=== PATIENT | female | born 1945 | race Caucasian/White ===

== ENCOUNTER 2018-05-14 14:15 | Emergency (ER) | payer MEDICARE, OTHER ==
[~2018-05-14] VITALS: Ht 157.5 cm; Wt 76.8 kg
[~2018-05-14 14:15] MED LIST: ADULT LOW DOSE81 MG PO; AMITRIPTYLINE H25 M2 PO; BENTYL PO; BUPROPION XL150 MG PO; BUSPAR PO; BUTALB-CAFF-AC1 EACH PO; CYMBALTA60 MG PO; FENOFIBRATE160 MG PO; FOSAMAX 70 MG T70 M1 PO; INDERAL LA 80 M80 M1 PO; LEVOTHYROXINE0.05 MG PO; NIASPAN ER 101000 M1 PO; NORCO 5-325 TA1 EAC1 PO; OSCIMIN0.125 MG PO; PRILOSEC40 MG PO; REMIFEMIN; RESTORIL15 MG PO; SIMVASTATIN40 MG PO; TRAMADOL 50 MG50 MG; VENLAFAXINE HC150 M1 PO; XANAX 0.25 MG0.25 MG PO
[2018-05-14] MEDS ORDERED: XANAX 0.5 MG0.5 MG PO (14:33)
[2018-05-14] MEDS ORDERED: MOBIC15 MG PO (14:34)
[2018-05-14] MEDS ORDERED: CALCIUM 600 +1 EAC1 PO (14:35)
[2018-05-14] MEDS ORDERED: CHROMIUM PICO200 MCG PO (14:36)
[2018-05-14] MEDS ORDERED: VITAMIN E400 UNIT PO (14:37)
[2018-05-14] MEDS ORDERED: BIOTIN5000 MCG PO (14:38)
[2018-05-14] MEDS ORDERED: CEFDINIR300 MG PO (14:38)
[2018-05-14] MEDS ORDERED: VITAMINC500 PO (14:39)
[2018-05-14] MEDS ORDERED: VITAMIN D2000 UNIT PO (14:40)
[2018-05-14] MEDS ORDERED: MENOPAUSE SUPPO20 MG PO (14:41)
[2018-05-14 15:15] LABS: ABSOLUTE BASOPHILS 0.1 thou/uL (0.0-0.2); ABSOLUTE EOSINOPHILS 0.5 thou/uL (0.0-0.7); ABSOLUTE LYMPHOCYTES 1.5 thou/uL (0.8-5.3); ABSOLUTE MONOCYTES 0.3 thou/uL (0.0-1.2); BASOPHILS 1.2 %; EOSINOPHILS 8.6 %; HEMATOCRIT 41.4 % (37.0-47.0); LYMPHOCYTES 28.5 %; MCH 30.5 pg (26.0-34.0); MCHC 33.8 g/dL (28.0-37.0); MONOCYTES 5.9 %; MPV 7.3 fl. (7.2-11.1); NUCLEATED RBCS 0 /100WBC; PLATELET COUNT* 377 thou/uL (150-400); POLYS 55.8 %; RDW-CV 12.9 % (10.5-14.5); WBC 5.4 thou/uL (4.0-11.0)
[2018-05-14 15:25] LABS: ANION GAP 7 mmol/L (7-16); BUN 20 mg/dL (7-18); CHLORIDE 103 mmol/L (98-107); CO2 29 mmol/L (21-32); GLUCOSE 159 mg/dL (70-99); POTASSIUM 3.8 mmol/L (3.5-5.1); SODIUM 139 mmol/L (136-145)
[2018-05-14 15:37] LABS: ALBUMIN 3.7 g/dL (3.4-5.0); ALKALINE PHOSPHATASE 76 U/L (46-116); SGOT 77 U/L (15-37); SGPT 67 U/L (30-65); TOTAL BILIRUBIN 0.3 mg/dL (<0.1-1.0); TOTAL PROTEIN 7.1 g/dL (6.4-8.2); TROPONIN-I LEVEL <0.06 ng/mL (<0.06)
[2018-05-14 16:18] LABS: URINE BILIRUBIN NEGATIVE (Negative); URINE BLOOD NEGATIVE (Negative); URINE CLARITY CLEAR; URINE COLOR YELLOW; URINE GLUCOSE-RANDOM NEGATIVE (Negative); URINE KETONES NEGATIVE (Negative); URINE LEUKOCYTES-REFLEX 1+ (Negative); URINE NITRITE-REFLEX NEGATIVE (Negative); URINE PROTEIN NEGATIVE (Negative); URINE SPECIFIC GRAVITY 1.015 (1.005-1.030); URINE UROBILINOGEN 0.2 E.U./dl (0.2-1.0)
[2018-05-14 16:28] LABS: SQUAMOUS NONE SEEN /LPF (0-3); URINE RBC None Seen /HPF (0-2); URINE WBC-REFLEX 0-5 Rare /HPF (0-5)
[2018-05-14 16:29] LABS: BACTERIA-REFLEX None Seen /HPF (None Seen); CASTS None Seen /LPF (None Seen); CRYSTALS None Seen /LPF (None Seen)
[2018-05-14] MEDS ORDERED: KEFLEX500 M1 PO (17:10)
[2018-05-14 17:19] VITALS: BP 150/80
--- NOTE | 2018-05-15 10:51 | EKG ---
[place] [address] ELECTROCARDIOGRAM REPORT Name: BABS RICE Room: [facility]#: [id number] Admission: 05/14/18 Attend Phys: Discharge: 05/14/18 Date of : 45 Report #: [id number] THIS REPORT FOR: //name// [facility] ED Test Date: 2018-05-14 Test Time: 14:27:14 Pat Name: BABS RICE Department: Room: Gender: F Conveyor Tender: Jordi KINSEY : 1945 Requested By: Angeles Mayers Order Number: [id number] MD: Nathan Alejandro Measurements Intervals [place] Rate: 95 P: 58 MA: 160 QRS: 70 QRSD: 90 T: 99 QT: 359 QTc: 452 Interpretive Statements Sinus rhythm Nonspecific T abnrm, anterolateral leads Compared to ECG 04/12/2011 10:51:34 no change Electronically Signed On 05-15-2018 10:51:36 ASSISTANT REAL ESTATE MANAGER by Nathan Alejandro [email or web address] <ELECTRONICALLY SIGNED> By: Nathan Alejandro MD, [facility] 05/15/18 1051 1427 142 Nathan Alejandro MD, FACC /EPI
== END 2018-05-14 17:19 | disposition home or self-care (01) ==
LOC: M.ERS 14:15
PROVIDERS: Personal Emergency Response Attendant
DX: R41.0 Disorientation, unspecified (principal); N39.0 Urinary tract infection, site not specified; F41.0 Panic disorder [episodic paroxysmal anxiety]; E03.9 Hypothyroidism, unspecified; E78.5 Hyperlipidemia, unspecified; F32.9 Major depressive disorder, single episode, unspecified; G43.909 Migraine, unspecified, not intractable, without status migrainosus; K21.9 Gastro-esophageal reflux disease without esophagitis; M79.7 Fibromyalgia; Z88.1 Allergy status to other antibiotic agents; Z88.8 Allergy status to other drugs, medicaments and biological substances; Z90.49 Acquired absence of other specified parts of digestive tract; Z90.710 Acquired absence of both cervix and uterus

== ENCOUNTER → 2018-06-26 | Outpatient (CLI) | payer MEDICARE, OTHER ==
[~2018-06-26] MED LIST changes: +BIOTIN5000 MCG PO; +CALCIUM 600 +1 EAC1 PO; +CEFDINIR300 MG PO; +CHROMIUM PICO200 MCG PO; +KEFLEX500 M1 PO; +MENOPAUSE SUPPO20 MG PO; +MOBIC15 MG PO; +VITAMIN D2000 UNIT PO; +VITAMIN E400 UNIT PO; +VITAMINC500 PO; +XANAX 0.5 MG0.5 MG PO
== END ==
LOC: M.RAD 10:33
DX: Z12.31 Encounter for screening mammogram for malignant neoplasm of breast (principal)

== ENCOUNTER 2018-08-26 19:47 | Emergency (ER) | payer MEDICARE, OTHER ==
[~2018-08-26] VITALS: Ht 167.6 cm; Wt 76.7 kg
[2018-08-26] MEDS ORDERED: ARICEPT 5 MG TAB5 MG PO (20:16)
[2018-08-26 21:01] LABS: ABSOLUTE EOSINOPHILS 0.4 thou/uL (0.0-0.7); ABSOLUTE LYMPHOCYTES 2.1 thou/uL (0.8-5.3); ABSOLUTE MONOCYTES 0.4 thou/uL (0.0-1.2); BASOPHILS 0.8 %; EOSINOPHILS 7.3 %; HEMATOCRIT 40.7 % (37.0-47.0); HEMOGLOBIN 13.7 gm/dL (12.0-15.0); LYMPHOCYTES 34.2 %; MCH 29.8 pg (26.0-34.0); MCHC 33.5 g/dL (28.0-37.0); MONOCYTES 7.5 %; MPV 7.4 fl. (7.2-11.1); NUCLEATED RBCS 0 /100WBC; PLATELET COUNT* 383 thou/uL (150-400); POLYS 50.2 %; RBC 4.58 mil/uL (4.20-5.00); RDW-CV 12.9 % (10.5-14.5)
[2018-08-26 21:14] LABS: ALBUMIN 3.6 g/dL (3.4-5.0); CALCIUM 8.7 mg/dL (8.5-10.1); TOTAL BILIRUBIN 0.2 mg/dL (<0.1-1.0); TOTAL PROTEIN 6.5 g/dL (6.4-8.2)
[2018-08-26 21:46] VITALS: BP 158/83
== END 2018-08-26 21:49 | disposition home or self-care (01) ==
LOC: M.ERS 19:47
PROVIDERS: Nurse Practitioner Family
DX: M79.662 Pain in left lower leg (principal); R73.9 Hyperglycemia, unspecified; E03.9 Hypothyroidism, unspecified; E78.5 Hyperlipidemia, unspecified; F32.9 Major depressive disorder, single episode, unspecified; G43.909 Migraine, unspecified, not intractable, without status migrainosus; K21.9 Gastro-esophageal reflux disease without esophagitis; M79.7 Fibromyalgia; Z88.1 Allergy status to other antibiotic agents; Z88.8 Allergy status to other drugs, medicaments and biological substances; Z88.5 Allergy status to narcotic agent; Z90.49 Acquired absence of other specified parts of digestive tract; Z90.710 Acquired absence of both cervix and uterus

== ENCOUNTER → 2018-09-01 | Outpatient (CLI) | payer MEDICARE, OTHER ==
[~2018-09-01] MED LIST changes: +ARICEPT 5 MG TAB5 MG PO
== END ==
LOC: M.MRI 17:02
DX: M25.562 Pain in left knee (principal); K21.9 Gastro-esophageal reflux disease without esophagitis; E78.5 Hyperlipidemia, unspecified; E03.9 Hypothyroidism, unspecified; K58.9 Irritable bowel syndrome, unspecified; G44.209 Tension-type headache, unspecified, not intractable; G43.909 Migraine, unspecified, not intractable, without status migrainosus; M85.88 Other specified disorders of bone density and structure, other site; E55.9 Vitamin D deficiency, unspecified; Z82.49 Family history of ischemic heart disease and other diseases of the circulatory system; Z80.3 Family history of malignant neoplasm of breast; Z83.3 Family history of diabetes mellitus; Z68.29 Body mass index [BMI] 29.0-29.9, adult; Z79.899 Other long term (current) drug therapy; Z88.8 Allergy status to other drugs, medicaments and biological substances; Z88.1 Allergy status to other antibiotic agents

== ENCOUNTER → 2018-10-15 | Outpatient (CLI) | payer MEDICARE, OTHER | LOC: M.RAD 15:13 | DX: M85.89 Other specified disorders of bone density and structure, multiple sites (principal); Z88.1 Allergy status to other antibiotic agents; Z88.8 Allergy status to other drugs, medicaments and biological substances ==

== ENCOUNTER → 2019-03-09 | Outpatient (CLI) | payer MEDICARE, OTHER | LOC: M.ULTRA 09:30 | DX: N63.11 Unspecified lump in the right breast, upper outer quadrant (principal); Z80.3 Family history of malignant neoplasm of breast ==

== ENCOUNTER → 2019-08-10 | Outpatient (CLI) | payer MEDICARE, OTHER ==
[2019-08-10 15:09] LABS: ABSOLUTE BASOPHILS 0.1 thou/uL (0.0-0.2); ABSOLUTE EOSINOPHILS 0.2 thou/uL (0.0-0.7); ABSOLUTE LYMPHOCYTES 2.1 thou/uL (0.8-5.3); ABSOLUTE MONOCYTES 0.5 thou/uL (0.0-1.2); ABSOLUTE NEUTROPHILS 3.3 thou/uL (1.6-8.1); BASOPHILS 1.1 %; EOSINOPHILS 3.3 %; HEMATOCRIT 43.7 % (37.0-47.0); LYMPHOCYTES 34.2 %; MCH 29.9 pg (26.0-34.0); MCHC 34.4 g/dL (28.0-37.0); MCV 87.1 fL (80.0-100.0); MONOCYTES 8.1 %; MPV 7.2 fl. (7.2-11.1); NUCLEATED RBCS 0 /100WBC; PLATELET COUNT* 372 thou/uL (150-400); POLYS 53.3 %; RBC 5.02 mil/uL (4.20-5.00); RDW-CV 12.9 % (10.5-14.5); WBC 6.3 thou/uL (4.0-11.0)
[2019-08-10 15:22] LABS: ALBUMIN 3.7 g/dL (3.4-5.0); CREATININE 0.7 mg/dL (0.6-1.3); POTASSIUM 4.1 mmol/L (3.5-5.1); TOTAL BILIRUBIN 0.3 mg/dL (<0.1-1.0)
[2019-08-10 16:21] LABS: ESR (SEDRATE) 12 mm/hr (0-30)
== END ==
LOC: M.LAB 14:24
PROVIDERS: Internal Medicine Gastroenterology
DX: K58.9 Irritable bowel syndrome, unspecified (principal)

== ENCOUNTER 2020-01-30 12:58 | Emergency (ER) | payer MEDICARE, OTHER ==
[~2020-01-30] VITALS: Ht 162.6 cm; Wt 63.5 kg
[2020-01-30] MEDS ORDERED: MIRALAX119 GM PO (13:18)
[2020-01-30 13:54] LABS: ABSOLUTE BASOPHILS 0.1 thou/uL (0.0-0.2); ABSOLUTE EOSINOPHILS 0.5 thou/uL (0.0-0.7); ABSOLUTE LYMPHOCYTES 1.5 thou/uL (0.8-5.3); ABSOLUTE MONOCYTES 0.5 thou/uL (0.0-1.2); ABSOLUTE NEUTROPHILS 3.1 thou/uL (1.6-8.1); BASOPHILS 1.1 %; EOSINOPHILS 8.7 %; HEMATOCRIT 40.7 % (37.0-47.0); HEMOGLOBIN 14.2 gm/dL (12.0-15.0); LYMPHOCYTES 26.3 %; MCH 30.7 pg (26.0-34.0); MCHC 34.9 g/dL (28.0-37.0); MONOCYTES 8.8 %; MPV 6.5 fl. (7.2-11.1); NUCLEATED RBCS 0 /100WBC; PLATELET COUNT* 363 thou/uL (150-400); POLYS 55.1 %; RBC 4.63 mil/uL (4.20-5.00); RDW-CV 12.6 % (10.5-14.5); WBC 5.6 thou/uL (4.0-11.0)
[2020-01-30 13:59] LABS: CALCIUM 8.6 mg/dL (8.5-10.1); CREATININE 0.8 mg/dL (0.6-1.3); POTASSIUM 4.7 mmol/L (3.5-5.1)
[2020-01-30 14:10] LABS: ALBUMIN 3.6 g/dL (3.4-5.0); TOTAL BILIRUBIN 0.7 mg/dL (<0.1-1.0); TOTAL PROTEIN 7.3 g/dL (6.4-8.2)
[2020-01-30 15:16] LABS: INFLUENZA A ANTIGEN Negative (Negative); INFLUENZA B ANTIGEN Negative (Negative)
[2020-01-30] MEDS ORDERED: AZITHROMYCIN 2250 MG PO (15:24)
[2020-01-30] MEDS ORDERED: PROAIR HFA8.5 GM INH (15:24)
[2020-01-30 15:30] VITALS: BP 129/58
--- NOTE | 2020-01-31 11:50 | EKG ---
[place] [address] ELECTROCARDIOGRAM REPORT Name: BABS RICE Room: [facility] [place]#: [id number] Admission: 01/30/20 Attend Phys: Discharge: 01/30/20 Date of : 45 Date of Service: 01/30/20 1328 Report #: [id number] THIS REPORT FOR: //name// [facility] ED Test Date: 2020-01-30 Test Time: 13:28:10 Pat Name: BABS RICE Department: Room: Gender: Windows Support Engineer: [place] : 1945 Requested By: Андрей Dunbar Order Number: [id number] MD: Nathan Alejandro Measurements Intervals [place] Rate: 99 P: 66 [place]: 138 QRS: 69 QRSD: 83 T: 94 QT: 352 QTc: 452 Interpretive Statements Sinus rhythm Nonspecific T abnrm, anterolateral leads Compared to ECG 05/14/2018 14:27:14 No significant changes Electronically Signed On 01-31-2020 11:50:17 CDT by Nathan Alejandro [email or web address] <ELECTRONICALLY SIGNED> By: Nathan Alejandro MD, [facility] 01/31/20 1150 1328 1328 Nathan Alejandro MD, [facility] /EPI
== END 2020-01-30 15:30 | disposition home or self-care (01) ==
LOC: M.ERS 12:58
PROVIDERS: Nurse Practitioner Psychiatric/Mental Health
DX: J98.11 Atelectasis (principal); Z20.828 Contact with and (suspected) exposure to other viral communicable diseases; R05 Cough; E03.9 Hypothyroidism, unspecified; G43.909 Migraine, unspecified, not intractable, without status migrainosus; K21.9 Gastro-esophageal reflux disease without esophagitis; M79.7 Fibromyalgia; Z88.1 Allergy status to other antibiotic agents; Z88.5 Allergy status to narcotic agent; Z88.8 Allergy status to other drugs, medicaments and biological substances; Z79.899 Other long term (current) drug therapy; Z90.49 Acquired absence of other specified parts of digestive tract; Z90.710 Acquired absence of both cervix and uterus; Z98.890 Other specified postprocedural states

== ENCOUNTER 2020-02-19 14:16 | Emergency (ER) | payer MEDICARE, OTHER ==
[~2020-02-19] VITALS: Ht 162.6 cm; Wt 68.0 kg
[~2020-02-19 14:16] MED LIST changes: +AZITHROMYCIN 2250 MG PO; +MIRALAX119 GM PO; +PROAIR HFA8.5 GM INH
[2020-02-19 14:46] LABS: HEMATOCRIT 43.1 % (37.0-47.0); HEMOGLOBIN 14.9 gm/dL (12.0-15.0); MCH 30.6 pg (26.0-34.0); MCHC 34.7 g/dL (28.0-37.0); MCV 88.3 fL (80.0-100.0); MPV 6.3 fl. (7.2-11.1); NUCLEATED RBCS 0 /100WBC; PLATELET COUNT* 380 thou/uL (150-400); RBC 4.87 mil/uL (4.20-5.00); RDW-CV 12.5 % (10.5-14.5); WBC 7.3 thou/uL (4.0-11.0)
[2020-02-19 15:01] LABS: ALBUMIN 3.7 g/dL (3.4-5.0); CALCIUM 8.5 mg/dL (8.5-10.1); CREATININE 0.8 mg/dL (0.6-1.3); POTASSIUM 4.1 mmol/L (3.5-5.1); TOTAL BILIRUBIN 0.3 mg/dL (<0.1-1.0); TOTAL PROTEIN 7.4 g/dL (6.4-8.2)
[2020-02-19 15:04] LABS: ABSOLUTE BASOPHILS 0.1 thou/uL (0.0-0.2); ABSOLUTE EOSINOPHILS 0.2 thou/uL (0.0-0.7); ABSOLUTE LYMPHOCYTES 3.1 thou/uL (0.8-5.3); ABSOLUTE MONOCYTES 0.7 thou/uL (0.0-1.2); ABSOLUTE NEUTROPHILS 3.3 thou/uL (1.6-8.1); ATYPICAL LYMPHS 20 %
[2020-02-19 15:05] LABS: PLATELET ESTIMATE ADEQUATE
[2020-02-19 15:56] LABS: URINE BILIRUBIN NEGATIVE (Negative); URINE BLOOD TRACE (Negative); URINE COLOR YELLOW; URINE GLUCOSE-RANDOM NEGATIVE (Negative); URINE KETONES NEGATIVE (Negative); URINE LEUKOCYTES-REFLEX 1+ (Negative); URINE NITRITE-REFLEX NEGATIVE (Negative); URINE PROTEIN NEGATIVE (Negative); URINE UROBILINOGEN 0.2 E.U./dl (0.2-1.0)
[2020-02-19 15:58] LABS: URINE CLARITY HAZY
[2020-02-19 16:07] LABS: BACTERIA-REFLEX None Seen /HPF (None Seen); CASTS None Seen /LPF (None Seen); CRYSTALS None Seen /LPF (None Seen); MUCUS 0-3 Light strn/LPF (None Seen); SQUAMOUS 4-10 Moderate /LPF (0-3); URINE RBC None Seen /HPF (0-2); URINE WBC-REFLEX 0-5 Rare /HPF (0-5)
[2020-02-19] MEDS ORDERED: FLAGYL500 M1 PO (17:00)
[2020-02-19 17:30] VITALS: BP 134/75
== END 2020-02-19 17:31 | disposition home or self-care (01) ==
LOC: M.ERS 14:16
PROVIDERS: Physician Assistant
DX: R19.7 Diarrhea, unspecified (principal); R10.30 Lower abdominal pain, unspecified; E03.9 Hypothyroidism, unspecified; G43.909 Migraine, unspecified, not intractable, without status migrainosus; K21.9 Gastro-esophageal reflux disease without esophagitis; M79.7 Fibromyalgia; E78.5 Hyperlipidemia, unspecified; Z79.899 Other long term (current) drug therapy; Z88.1 Allergy status to other antibiotic agents; Z88.8 Allergy status to other drugs, medicaments and biological substances; Z90.49 Acquired absence of other specified parts of digestive tract

== ENCOUNTER → 2020-04-14 | Outpatient (CLI) | payer MEDICARE, OTHER ==
[~2020-04-14] MED LIST changes: +FLAGYL500 M1 PO
== END ==
LOC: M.RAD 12:29
PROVIDERS: ATTEND Family Medicine
DX: Z12.31 Encounter for screening mammogram for malignant neoplasm of breast (principal)

== ENCOUNTER 2020-04-17 16:40 | Emergency (ER) | payer MEDICARE, OTHER ==
[~2020-04-17] VITALS: Ht 162.6 cm; Wt 68.0 kg
[2020-04-17 17:57] LABS: URINE BILIRUBIN NEGATIVE (Negative); URINE BLOOD NEGATIVE (Negative); URINE COLOR YELLOW; URINE GLUCOSE-RANDOM NEGATIVE (Negative); URINE KETONES NEGATIVE (Negative); URINE NITRITE-REFLEX NEGATIVE (Negative); URINE PROTEIN NEGATIVE (Negative); URINE UROBILINOGEN 0.2 E.U./dl (0.2-1.0)
[2020-04-17 17:59] LABS: CALCIUM 8.7 mg/dL (8.5-10.1); CREATININE 0.8 mg/dL (0.6-1.3)
[2020-04-17 18:00] LABS: ABSOLUTE EOSINOPHILS 0.5 thou/uL (0.0-0.7); ABSOLUTE LYMPHOCYTES 2.4 thou/uL (0.8-5.3); ABSOLUTE MONOCYTES 0.6 thou/uL (0.0-1.2); ABSOLUTE NEUTROPHILS 3.3 thou/uL (1.6-8.1); BASOPHILS 0.3 %; HEMATOCRIT 43.6 % (37.0-47.0); HEMOGLOBIN 14.7 gm/dL (12.0-15.0); LYMPHOCYTES 34.9 %; MCH 29.9 pg (26.0-34.0); MCHC 33.8 g/dL (28.0-37.0); MCV 88.4 fL (80.0-100.0); MONOCYTES 9.1 %; NUCLEATED RBCS 0 /100WBC; PLATELET COUNT* 397 thou/uL (150-400); POLYS 48.7 %; RBC 4.93 mil/uL (4.20-5.00); RDW-CV 12.6 % (10.5-14.5); WBC 6.8 thou/uL (4.0-11.0)
[2020-04-17 18:01] LABS: URINE CLARITY HAZY; URINE LEUKOCYTES-REFLEX 2+ (Negative)
[2020-04-17 18:03] LABS: ALBUMIN 3.7 g/dL (3.4-5.0); TOTAL BILIRUBIN 0.3 mg/dL (<0.1-1.0); TOTAL PROTEIN 7.5 g/dL (6.4-8.2)
[2020-04-17 18:05] LABS: CASTS None Seen /LPF (None Seen); CRYSTALS None Seen /LPF (None Seen); MUCUS 0-3 Light strn/LPF (None Seen); SQUAMOUS 4-10 Moderate /LPF (0-3); URINE RBC 0-2 Rare /HPF (0-2); URINE WBC-REFLEX 6-15 Few /HPF (0-5); WBC CLUMPS Few (None Seen)
[2020-04-17 18:06] LABS: TRANSITIONAL EPITHEL CELL 0-3 Few /LPF (None Seen)
[2020-04-17] MEDS ORDERED: KEFLEX500 M1 PO (20:30)
[2020-04-17 20:47] VITALS: BP 132/70
--- NOTE | 2020-04-18 16:36 | EKG ---
[place] [address] ELECTROCARDIOGRAM REPORT Name: BABS RICE Room: [facility]#: [id number] Admission: 04/17/20 Attend Phys: Discharge: 04/17/20 Date of : 45 Date of Service: 04/17/201822 Report #: [id number] THIS REPORT FOR: //name// [facility] ED Test Date: 2020-04-17 Test Time: 18:23:45 Pat Name: BABS RICE Department: Room: Gender: Entry Level Civil Engineer: [facility] : 1945 Requested By: La Robertson Order Number: [id number] MD: Irwin Garcia Measurements Intervals [place] Rate: 92 P: 53 OR: 131 QRS: 74 QRSD: 84 T: 92 QT: 363 QTc: 450 Interpretive Statements Sinus rhythm Compared to ECG 01/30/2020 13:28:10 No significant changes Electronically Signed On 04-18-2020 16:36:37 HOSPICE VOLUNTEER COORDINATOR by Irwin Garcia [email or web address] <ELECTRONICALLY SIGNED> By: Irwin Garcia MD, [facility] 04/18/20 1636 182 22 Irwin Garcia MD, [facility] /EPI
== END 2020-04-17 20:48 | disposition still patient (30) ==
LOC: M.ERS 16:40
PROVIDERS: Nurse Practitioner Family
DX: N39.0 Urinary tract infection, site not specified (principal); R94.5 Abnormal results of liver function studies; Z20.828 Contact with and (suspected) exposure to other viral communicable diseases; E78.5 Hyperlipidemia, unspecified; G43.909 Migraine, unspecified, not intractable, without status migrainosus; M79.7 Fibromyalgia; K21.9 Gastro-esophageal reflux disease without esophagitis; Z88.8 Allergy status to other drugs, medicaments and biological substances; Z88.1 Allergy status to other antibiotic agents; Z87.19 Personal history of other diseases of the digestive system; Z90.49 Acquired absence of other specified parts of digestive tract; Z90.710 Acquired absence of both cervix and uterus

== ENCOUNTER 2020-09-13 17:16 | Inpatient (IN) | payer MEDICARE, OTHER ==
[~2020-09-13] VITALS: Ht 167.6 cm; Wt 71.2 kg
[2020-09-13 17:22] VITALS: BP 129/79
[2020-09-13 17:58] LABS: ABSOLUTE BASOPHILS 0.1 thou/uL (0.0-0.2); ABSOLUTE EOSINOPHILS 0.3 thou/uL (0.0-0.7); ABSOLUTE LYMPHOCYTES 1.8 thou/uL (0.8-5.3); ABSOLUTE MONOCYTES 0.5 thou/uL (0.0-1.2); ABSOLUTE NEUTROPHILS 3.1 thou/uL (1.6-8.1); BASOPHILS 1.1 %; EOSINOPHILS 5.4 %; HEMATOCRIT 41.4 % (37.0-47.0); HEMOGLOBIN 13.8 gm/dL (12.0-15.0); LYMPHOCYTES 31.2 %; MCH 29.8 pg (26.0-34.0); MCHC 33.4 g/dL (28.0-37.0); MCV 89.1 fL (80.0-100.0); MONOCYTES 8.8 %; MPV 7.2 fl. (7.2-11.1); NUCLEATED RBCS 0 /100WBC; PLATELET COUNT* 353 thou/uL (150-400); POLYS 53.5 %; RBC 4.64 mil/uL (4.20-5.00); RDW-CV 13.1 % (10.5-14.5); WBC 5.8 thou/uL (4.0-11.0)
[2020-09-13 18:06] LABS: CALCIUM 8.5 mg/dL (8.5-10.1); CREATININE 0.9 mg/dL (0.6-1.3)
[2020-09-13 18:10] LABS: ALBUMIN 3.4 g/dL (3.4-5.0); TOTAL BILIRUBIN 0.4 mg/dL (<0.1-1.0); TOTAL PROTEIN 6.8 g/dL (6.4-8.2)
[2020-09-13 18:15] LABS: SALICYLATE < 2.8 mg/dL (2.8-20.0)
[2020-09-13 18:16] LABS: ACETAMINOPHEN < 2 ug/mL (10-30); ALCOHOL < 10 mg/dL (<10); POTASSIUM 2.7 mmol/L (3.5-5.1)
[2020-09-13 20:17] VITALS: BP 125/76
[2020-09-14 00:09] VITALS: BP 122/68
[2020-09-14 04:06] VITALS: BP 120/65
[2020-09-14 08:00] VITALS: BP 114/59
[2020-09-14 08:51] LABS: CALCIUM 7.7 mg/dL (8.5-10.1); CREATININE 0.6 mg/dL (0.6-1.3); POTASSIUM 3.5 mmol/L (3.5-5.1)
[2020-09-14 08:55] LABS: MAGNESIUM 1.6 mg/dL (1.8-2.4)
--- NOTE | 2020-09-14 09:30 | EKG ---
[place] [address] ELECTROCARDIOGRAM REPORT Name: BABS RICE Room: [address] ADM IN .R.#: [id number] Admission: 09/13/20 Attend Phys: Madhav Oakes Discharge: Date of : 45 Date of Service: 09/13/20 1734 Report #: [id number] THIS REPORT FOR: //name// [facility] ED Test Date: 2020-09-13 Test Time: 17:34:37 Pat Name: BABS RICE Department: Room: [facility] Gender: F Senior Product Marketing Manager: [place] : 1945 Requested By: Randall Martinez Order Number: [id number] MD: Anand Green Measurements Intervals [place] Rate: 86 P: 65 [place]: 147 QRS: 58 QRSD: 86 T: 106 QT: 403 QTc: 482 Interpretive Statements Sinus rhythm Nonspecific T abnrm, anterolateral leads Borderline prolonged QT interval Compared to ECG 04/17/2020 18:23:45 No significant changes Cannot exclude old inferior myocardial infarction Electronically Signed On 09-14-2020 9:30:14 CDT by Anand Green [email or web address] <ELECTRONICALLY SIGNED> By: Shirley Green MD, [facility] 09/14/20 0930 1734 1734 Shirley Green MD, [facility] /EPI
[2020-09-14 11:32] VITALS: BP 134/71
[2020-09-14] MEDS ORDERED: LOPERAMIDE 2 MG2 M1 PO (15:41)
[2020-09-14 16:01] VITALS: BP 128/67
[2020-09-15] MEDS ORDERED: SINGULAIR 10 MG10 M1 PO (08:32)
[2020-09-15] MEDS ORDERED: LEVOTHYROXINE50 MCG PO (08:32)
[2020-09-15] MEDS ORDERED: BENTYL 10 MG CA10 M1 PO (08:32)
[2020-09-15] MEDS ORDERED: NORVASC5 MG PO (08:33)
== END 2020-09-14 17:00 | DRG 917 ==
LOC: M.ERS 17:16 → M.2W 18:47 → M.TBA-ER 18:47 → M.2W 20:05
PROVIDERS: Family Medicine; Internal Medicine; ADMIT Internal Medicine; ATTEND Internal Medicine
DX: T43.012A Poisoning by tricyclic antidepressants, intentional self-harm, initial encounter (principal); G92 Toxic encephalopathy; R45.851 Suicidal ideations; E87.6 Hypokalemia; E03.9 Hypothyroidism, unspecified; E78.5 Hyperlipidemia, unspecified; F32.9 Major depressive disorder, single episode, unspecified; G43.909 Migraine, unspecified, not intractable, without status migrainosus; F41.1 Generalized anxiety disorder; K21.9 Gastro-esophageal reflux disease without esophagitis; M79.7 Fibromyalgia; Z20.822 Contact with and (suspected) exposure to COVID-19; Z90.49 Acquired absence of other specified parts of digestive tract; Z90.710 Acquired absence of both cervix and uterus; Z79.899 Other long term (current) drug therapy; Z88.1 Allergy status to other antibiotic agents; Z88.5 Allergy status to narcotic agent; Z88.8 Allergy status to other drugs, medicaments and biological substances; Y92.89 Other specified places as the place of occurrence of the external cause

== ENCOUNTER 2020-10-25 09:36 | Emergency (ER) | payer MEDICARE, OTHER ==
[~2020-10-25] VITALS: Ht 167.6 cm; Wt 81.7 kg
--- NOTE | ~2020-10-25 | EMS ---
[facility] [address] [place] [address] EMS Patient Care Report Name: MARGARET TOMLINSON Room: [facility]#: [id number] Admission: 10/25/20 Attend Phys: Discharge: Date of : 45 Report #: [id number] THIS REPORT FOR: //name// Report Transmitted: 10/25/2020 11:47 EMS Care Summary [facility] [place] Incident [id number] @ 10/25/2020 09:00 Incident Location [address] [place] [address] Patient Margaret Tomlinson Female, 75 Years 1945 Patient Address [address] [place] [address] Patient History Anxiety disorder, unspecified,Hyperlipidemia,Dysthymic disorder,Unspecified dementia,Acquired absence of cervix and uterus, Patient Allergies No known allergies, Chief Complaint Suicidal Ideation Disposition Transported No Lights/[place] Dispatch Reason Unknown Problem/Person Down Transported To [facility] Katie Maruo [phone], home care nurse. [facility] [place] [facility] unit 311 dispatched to above location in request by [place] [employer] ([employer]) Pumper 7 on scene. Upon arrival, [employer] personnel make contact and state that they dont' know whats going on but female patient needs to go to the hospital. Crew walks towards door of residence, and patient is being walked out by other [address] [place] [address] EMS Patient Care Report Name: MARGARET TOMLINSON Room: [facility]#: [id number] Admission: 10/25/20 Attend Phys: Discharge: Date of : 45 Report #: [id number] memebrs of [employer] crew. [employer] personnel ask [facility] crew to speak with home care nurse to obtain information. [facility] Highway Design Engineer makes contact with home care nurse (Debbie Mauro LPN Fire Prevention Bureau Captain, contact number [phone]). Nurse states she had made contact with the patient this morning and patient was acting inappropriately, shredding papers in her home, and that patient is having suicidal ideations. Nurse states that the patient expressed thoughts of hurting herself because she no longer wants to live and the patient may have taken some of her meds that she wasn't supposed to. Patient has full access to her medications at home. Nurse was unaware of what hospital the patient should go to for evaluation and states that she thinks that the patient was recently in a hospital for geriatric psychiatric evaluation. Highway Design Engineer returns to other [facility] weatherization crew leader and [employer] personnel who are assisting patient onto stretcher. Patient was placed in a semi fowlers position and secured via rails x 2 straps x 5. Patient is loaded into ambulance on EMS strethcer and secured without incident. Patient is a 75 y/o female. Patient airway is patent. Breathing is of adequate depth, quality and rate. Circulation is self maintained. Patients skin is of normal color, temperature and condition. Patient is alert and oriented to person, place, event but disoriented on time / date / time of year. Patient states that she has a history of dementia. Patient was asked if she had thoughts of killing herself today, and patient stated "yes and no". Patient states that she did have thoughts of harming herself, however denied having a plan to do so. Patient states that she was recently seen in a hospital for several things, including depression, and doctors have been changing her medicine. Patient was not able to tell crew her current medications, and states that her nurse would have them. While vital signs are assessed by Highway Design Engineer, EMT attempts to get additional information from nurse which nurse could not provide currently, only giving EMT the patients phone to give to her. Patient initially requested to be transferred to [facility]. Due to distance from area, patient was asked if a closer hospital would sufficient and patient agreed to go to [facility]. Enroute to [facility] additional information is gathered as noted (history). Patient carrys on conversation that she just feels as though she no longer has a purpose in life, and it's not that she wants to kill herself, but she has nothing to do with her time. Patients BGL is assessed due to confusion, EMS rules out physiologic emergencies. EKG is assessed showing a sinus tachycaric rhythm, no ectopics. Patient denies taking any medications that she shouldn't have and denies any alcohol or substance abuse. [facility] is contacted via radio with report, no orders given. Patient reports enroute that "she doesn't want to get anyone in trouble, but she had a problem with someone in the building where she lived and she needed to get away". Patient does not elaborate any further, but would not answer the question if someone was hurting her or if she felt safe. Patient has no further changes during transport. Upon arrival at [facility], patient is moved to ED room. EMS stretcher is lowered and patient stands with minimal assistance and sits on ED bed. Patient sits in a semi fowlers position and is secured via rails x 2. Patient care is transferred to staff with verbal report to physician and nurses in room, along with emphasis of patient stating [address] [place] [address] EMS Patient Care Report Name: MARGARET TOMLINSON Room: [facility]#: [id number] Admission: 10/25/20 Attend Phys: Discharge: Date of : 45 Report #: [id number] that she did not answer the questions of feeling safe at home. Nurse signs for receiving care. Crew returns to service. End of report. Melinda Coleman NRP. Initial Vitals @09:12SpO2: 97, @09:28SpO2: 94, @09:23 @09:12P: 94,R: 16,BP: 149/80, @09:28P: 101,R: 16,BP: 135/86, @09:12GCS: 14, @09:28GCS: 14, @09:09 @09:14Glucose: 130, Assessments @09:08MENTAL:SKIN:HEENT:LUNG SOUNDS:ABDOMEN:PELVIS//GI:EXTREMITIES:PULSE:NEURO: Impression Mental disorder Procedures @09:233-Lead ECGResponse: UnchangedSucceeded Timeline 09:08,Call Received 09:00,Dispatch Notified 09:00,Psap Call 09:00,Dispatched 09:00,En Route 09:05,On Scene 09:08,At Patient 09:09,BP: / M,PULSE: ,RR: R,SPO2: Ox,ETCO2: ,BG: ,PAIN: ,GCS: , 09:12,BP: / M,PULSE: ,RR: R,SPO2: 97 Ox,ETCO2: ,BG: ,PAIN: ,GCS: , 09:12,BP: 149/80 M,PULSE: 94,RR: 16 R,SPO2: Ox,ETCO2: ,BG: ,PAIN: ,GCS: , 09:12,BP: / M,PULSE: ,RR: R,SPO2: Ox,ETCO2: ,BG: ,PAIN: ,GCS: 14, 09:14,BP: / M,PULSE: ,RR: R,SPO2: Ox,ETCO2: ,B,PAIN: ,GCS: , 09:15,Depart Scene 09:23,3-Lead ECG,Response: UnchangedSucceeded, 09:23,BP: / M,PULSE: ,RR: R,SPO2: Ox,ETCO2: ,BG: ,PAIN: ,GCS: , 09:28,BP: / M,PULSE: ,RR: R,SPO2: 94 Ox,ETCO2: ,BG: ,PAIN: ,GCS: , 09:28,BP: 135/86 M,PULSE: 101,RR: 16 R,SPO2: Ox,ETCO2: ,BG: ,PAIN: ,GCS: , 09:28,BP: / M,PULSE: ,RR: R,SPO2: Ox,ETCO2: ,BG: ,PAIN: ,GCS: 14, 09:32,At Destination 09:50,[place] [address] EMS Patient Care Report Name: MARGARET TOMLINSON Room: [facility]#: [id number] Admission: 10/25/20 Attend Phys: Discharge: Date of : 45 Report #: [id number] Disclaimer v1.1 Copyright [employer] This EMS Care Summary contains data elements from the applicable legal record (which may be displayed differently). It is designed to provide pertinent information for the following purposes: continuity of care, clinical quality, and state data reporting. The complete legal record is available to ED staff and administrators of the receiving hospital in [employer]'s Patient Tracker. All data is provided "as is."
[~2020-10-25 09:36] MED LIST changes: +BENTYL 10 MG CA10 M1 PO; +LEVOTHYROXINE50 MCG PO; +LOPERAMIDE 2 MG2 M1 PO; +NORVASC5 MG PO; +OLANZAPINE2.5 MG PO; +SINGULAIR 10 MG10 M1 PO; +TRAZODONE HCL100 MG PO; +ZYPREXA 5 MG TAB5 M2 PO
[2020-10-25 10:06] LABS: ABSOLUTE BASOPHILS 0.1 thou/uL (0.0-0.2); ABSOLUTE EOSINOPHILS 0.3 thou/uL (0.0-0.7); ABSOLUTE LYMPHOCYTES 1.6 thou/uL (0.8-5.3); ABSOLUTE MONOCYTES 0.5 thou/uL (0.0-1.2); ABSOLUTE NEUTROPHILS 3.2 thou/uL (1.6-8.1); BASOPHILS 1.1 %; HEMATOCRIT 40.1 % (37.0-47.0); HEMOGLOBIN 13.5 gm/dL (12.0-15.0); LYMPHOCYTES 27.6 %; MCH 30.1 pg (26.0-34.0); MCHC 33.7 g/dL (28.0-37.0); MCV 89.4 fL (80.0-100.0); MONOCYTES 9.2 %; MPV 6.9 fl. (7.2-11.1); NUCLEATED RBCS 0 /100WBC; PLATELET COUNT* 338 thou/uL (150-400); POLYS 56.1 %; RBC 4.48 mil/uL (4.20-5.00); RDW-CV 12.8 % (10.5-14.5); WBC 5.7 thou/uL (4.0-11.0)
[2020-10-25 10:20] LABS: CALCIUM 9.2 mg/dL (8.5-10.1); CREATININE 0.8 mg/dL (0.6-1.3); POTASSIUM 3.8 mmol/L (3.5-5.1)
[2020-10-25 10:21] LABS: URINE BILIRUBIN NEGATIVE (Negative); URINE BLOOD NEGATIVE (Negative); URINE CLARITY CLEAR; URINE COLOR YELLOW; URINE GLUCOSE-RANDOM NEGATIVE (Negative); URINE KETONES NEGATIVE (Negative); URINE NITRITE-REFLEX NEGATIVE (Negative); URINE PROTEIN NEGATIVE (Negative); URINE SPECIFIC GRAVITY 1.015 (1.005-1.030); URINE UROBILINOGEN 0.2 E.U./dl (0.2-1.0)
[2020-10-25 10:22] LABS: ALBUMIN 3.6 g/dL (3.4-5.0); TOTAL BILIRUBIN 0.3 mg/dL (<0.1-1.0); TOTAL PROTEIN 7.3 g/dL (6.4-8.2)
[2020-10-25 10:22] LABS: URINE LEUKOCYTES-REFLEX 2+ (Negative)
[2020-10-25 10:27] LABS: ACETAMINOPHEN < 2 ug/mL (10-30); ALCOHOL < 10 mg/dL (<10); SALICYLATE < 2.8 mg/dL (2.8-20.0)
[2020-10-25] MEDS ORDERED: OLANZAPINE5 M1 PO ×2 (10:27→10:28)
[2020-10-25 10:29] LABS: AMP/METHAMP Negative (Negative); BARBITURATES Negative (Negative); BENZODIAZEPINES POSITIVE (Negative); COCAINE Negative (Negative); METHADONE Negative (Negative); OPIATES Negative (Negative); PCP Negative (Negative); THC Negative (Negative)
[2020-10-25 10:50] LABS: BACTERIA-REFLEX 1-9 Few /HPF (None Seen); CASTS None Seen /LPF (None Seen); CRYSTALS None Seen /LPF (None Seen); MUCUS 0-3 Light strn/LPF (None Seen); SQUAMOUS 0-3 Few /LPF (0-3); URINE RBC 0-2 Rare /HPF (0-2); URINE WBC-REFLEX 6-15 Few /HPF (0-5)
[2020-10-25 15:25] VITALS: BP 146/78
--- NOTE | 2020-10-25 16:13 | EKG ---
[place] [address] ELECTROCARDIOGRAM REPORT Name: BABS RICE Room: [facility]#: [id number] Admission: 10/25/20 Attend Phys: Discharge: 10/25/20 Date of : 45 Date of Service: 10/25/20 1035 Report #: [id number] THIS REPORT FOR: //name// [facility] ED Test Date: 2020-10-25 Test Time: 10:35:34 Pat Name: BABS RICE Department: Room: Gender: Student Ministries Director: GARCÍA : 1945 Requested By: Randall Martinez Order Number: [id number] MD: Nathan Alejandro Measurements Intervals [place] Rate: 72 P: 35 [place]: 146 QRS: 70 QRSD: 84 T: 95 QT: 395 QTc: 433 Interpretive Statements Sinus rhythm Nonspecific T abnormalities, lateral leads Compared to ECG 09/13/2020 17:34:37 no change Electronically Signed On 10-25-2020 16:12:47 CDT by Nathan Alejandro [email or web address] <ELECTRONICALLY SIGNED> By: Nathan Alejandro MD, [facility] 10/25/20 1612 1035 1035 Nathan Alejandro MD, [facility] /EPI
[2020-10-28] MEDS ORDERED: CLARITIN10 M2 PO (09:05)
[2020-10-28] MEDS ORDERED: MOBIC7.5 MG PO (09:07)
[2020-10-28] MEDS ORDERED: OLANZAPINE2.5 MG PO (09:09)
[2020-10-28] MEDS ORDERED: FLONASE 0.05%50 MCG NASAL (09:10)
== END 2020-10-25 15:25 ==
LOC: M.ERS 09:36
PROVIDERS: Family Medicine
DX: F03.90 Unspecified dementia, unspecified severity, without behavioral disturbance, psychotic disturbance, mood disturbance, and anxiety (principal); Z20.822 Contact with and (suspected) exposure to COVID-19; R45.851 Suicidal ideations; K58.9 Irritable bowel syndrome, unspecified; K21.9 Gastro-esophageal reflux disease without esophagitis; E78.5 Hyperlipidemia, unspecified; M79.7 Fibromyalgia; G43.909 Migraine, unspecified, not intractable, without status migrainosus; E03.9 Hypothyroidism, unspecified; Z88.1 Allergy status to other antibiotic agents; Z88.5 Allergy status to narcotic agent; Z88.8 Allergy status to other drugs, medicaments and biological substances

== ENCOUNTER 2021-08-07 17:47 | Inpatient (IN) | payer MEDICARE, OTHER ==
[~2021-08-07] VITALS: Ht 170.2 cm; Wt 65.8 kg
[~2021-08-07 17:47] MED LIST changes: +CLARITIN10 M2 PO; +FLONASE 0.05%50 MCG NASAL; +MOBIC7.5 MG PO; +OLANZAPINE5 M1 PO
[2021-08-07 17:49] VITALS: BP 137/73
--- NOTE | 2021-08-07 18:56 | NUR ---
REPORT FROM TIGIST BOJORQUEZ
[2021-08-07 20:00] VITALS: BP 132/61
--- NOTE | 2021-08-07 20:24 | NUR ---
REPORT TO ASIM BOJORQUEZ.
[2021-08-07 20:30] VITALS: BP 132/61; BP 142/69
== END 2021-08-08 | DRG 563 ==
LOC: M.ERS 17:47 → M.TBA-ER 19:47 → M.2W 19:47
PROVIDERS: ADMIT Internal Medicine; ATTEND Internal Medicine
DX: S42.301A Unspecified fracture of shaft of humerus, right arm, initial encounter for closed fracture (principal); F41.9 Anxiety disorder, unspecified; F32.9 Major depressive disorder, single episode, unspecified; K21.9 Gastro-esophageal reflux disease without esophagitis; E78.5 Hyperlipidemia, unspecified; E03.9 Hypothyroidism, unspecified; K58.9 Irritable bowel syndrome, unspecified; F03.90 Unspecified dementia, unspecified severity, without behavioral disturbance, psychotic disturbance, mood disturbance, and anxiety; G43.909 Migraine, unspecified, not intractable, without status migrainosus; Z90.49 Acquired absence of other specified parts of digestive tract; Z90.710 Acquired absence of both cervix and uterus; Z83.3 Family history of diabetes mellitus; Z82.49 Family history of ischemic heart disease and other diseases of the circulatory system; Z80.3 Family history of malignant neoplasm of breast; Z84.89 Family history of other specified conditions; Z88.6 Allergy status to analgesic agent; Z88.1 Allergy status to other antibiotic agents; W01.0XXA Fall on same level from slipping, tripping and stumbling without subsequent striking against object, initial encounter; Z88.8 Allergy status to other drugs, medicaments and biological substances; Y93.89 Activity, other specified; Y92.89 Other specified places as the place of occurrence of the external cause; Y99.8 Other external cause status; Z20.822 Contact with and (suspected) exposure to COVID-19